=== PATIENT | female | born 1995 | race Two or more races ===

== ENCOUNTER 2024-12-15 14:56 | Emergency (ER) | payer MEDICAID, SELFPAY ==
[2024-12-15 15:20] VITALS: BP 129/87; PULSE 80; RESP 16; TEMP 36.9; O2SAT 99; BMI 30.8
--- NOTE | 2024-12-15 15:34 | EKG_ITS ---
[facility] Test Date: 2024-12-15 Pat Name: YUDY JARA Department: Room: - Gender: Female [employer]: : 1995 Requested By: Raymond Simmons Order Number: [id number] Reading MD: Raymond Simmons Measurements Intervals [place] Rate: 68 P: 47 MS: 133 QRS: 87 QRSD: 91 T: 51 QT: 383 QTc: 408 Interpretive Statements SINUS RHYTHM Compared to ECG 06/03/2024 23:32:46 No significant changes /store/S0/[id number].pdf
--- NOTE | 2024-12-15 15:36 | PD.EDRME ---
Rapid Medical Screening Exam RME Arrival date/time: 12/15/24 14:56 29 year old female present to ED for c/o of dizziness, headache, fever for 1 week I have greeted and performed a focused initial assessment of this patient. A comprehensive ED assessment and evaluation of the patient, analysis of all test results, and completion of the medical decision making process will be conducted by additional ED providers. Chief Complaint: Headache Time Seen by Provider: 12/15/24 15:30 Vital signs: Vital Signs Temperature 98.5 F 12/15/24 15:20 Pulse Rate 80 12/15/24 15:20 Respiratory Rate 16 12/15/24 15:20 Blood Pressure 129/87 H 12/15/24 15:20 Pulse Oximetry (%) 99 12/15/24 15:20 Oxygen Delivery Method Room Air 12/15/24 15:20
[2024-12-15] MEDS: ACETAMINOPHEN 500 MG TABLET 1000 MG PO (15:49)
[2024-12-15] MEDS: ONDANSETRON ODT 4 MG TABRAP PO (15:50)
[2024-12-15 17:11] LABS: Basophils # (Auto) 0.1 Thou/mm3 (0.0-0.2); Basophils % (Auto) 1 % (0-2.5); Eosinophils # (Auto) 1.2 Thou/mm3 (0.0-0.5); Eosinophils % (Auto) 14 % (0-10); Hematocrit 37.1 % (36.0-46.0); Hemoglobin 11.8 g/dL (12.0-16.0); Immature Granulocytes % (Auto) 0 % (0-0); Immature Granulocytes Auto 0.01 Thou/mm3 (0.00-0.00); Lymphocytes # (Auto) 2.1 Thou/mm3 (1.0-4.8); Lymphocytes % (Auto) 24 % (10-50); Mean Corpuscular HGB Conc 31.8 g/dl (31.0-37.0); Mean Corpuscular Hemoglobin 23.8 pg (25.0-35.0); Mean Corpuscular Volume 75 fL (80-100); Monocytes # (Auto) 0.6 Thou/mm3 (0.0-0.8); Monocytes % (Auto) 7 % (0-12); Neutrophils # (Auto) 4.6 Thou/mm3 (1.8-7.7); Neutrophils % (Auto) 54 % (37-80); Nucleated Red Blood Cell % 0 /100 WBC (0); Platelet Count 327 Thou/mm3 (140-440); RDW Standard Deviation 39.4 fL (36.4-46.3); Red Blood Count 4.95 Miln/mm3 (4.00-5.20); White Blood Count 8.5 Thou/mm3 (3.6-11.0)
[2024-12-15 17:28] LABS: HCG,Qualitative Serum Negative
[2024-12-15 17:34] LABS: Alanine Aminotransferase 34 U/L (10-49); Albumin, Serum 4.6 gm/dL (3.5-5.0); Albumin/Globulin Ratio 1.6 (1.2-2.2); Alkaline Phosphatase 124 U/L (46-116); Anion Gap 10 (7-16); Aspartate Amino Transferase 24 U/L (0-34); BUN/Creatinine Ratio 18 Ratio (12-20); Bilirubin,Total 0.6 mg/dL (0.3-1.2); Blood Urea Nitrogen 11 mg/dL (9-23); Calcium 8.9 mg/dL (8.3-10.6); Calcium (Corrected) 8.9 mg/dL (8.5-10.1); Carbon Dioxide 23.9 mMol/L (20.0-31.0); Chloride 107 mMol/L (98-107); Creatinine (Component) 0.6 mg/dL (0.6-1.3); Globulin 2.8 gm/dL (2.3-3.5); Glucose 91 mg/dL (74-106); Osmolality,Calculated 280 (275-295); Potassium 3.8 mMol/L (3.4-5.1); Sodium 141 mMol/L (136-145); Total Protein 7.4 gm/dL (5.7-8.2); Troponin I < 0.002 ng/mL (0.0-0.045); eGFR > 60 See Note
--- NOTE | 2024-12-15 18:22 | PD.EDHA ---
ED Headache RME/HPI General Chief Complaint: Headache Stated Complaint: ELLISON, DIZZY, FEVER, COUGH, CHEST PAIN X 1 DAY Time Seen by Provider: 12/15/24 15:30 Arrival date/time: 12/15/24 14:56 29 year old female present to emergency room with c/o of dizziness, chest pain, headache, chills, for 1 day after getting upset LOCATION: head/chest SEVERITY: Symptoms are described as being severe with limitations on activities of daily living CONTEXT: The patient is unable to identify any inciting events. DURATION/TIMING: The symptoms started approximately 1 days ASSOCIATED SYMPTOMS: The patient is unable to identify any other associated symptoms. MODIFYING FACTORS: The patient is unable to identify any alleviating or aggravating symptoms. PERTINENT ROS: no pleuritic pain, no ripping or tearing sensations, denies any lower extremity edema and no unilateral swelling, no nausea,vomiting, diarrhea, no rash no loc/syncope episode no abd/back pain no dsyuria,urgency,frequency REVIEW OF SYSTEMS: See History of Present Illness - with the exception of those mentioned in the history of present illness, all other systems reviewed and reported as negative GENERAL: In general the patient is awake, interactive, in an emergency department gurney. HEAD/EYES/EARS/NOSE/THROAT: normo-cephalic, atraumatic, mucus membranes are moist, anicteric, palpebral conjunctiva is pink, trachea is midline. CARDIOVASCULAR: regular rate and regular rhythm, no murmurs, heart sounds are not distant, strong pulses in all four extremities that are equal and symmetric bilateral upper and lower extremities, normal capillary refill. CHEST/PULMONARY: normal chest rise and fall, good air movement, clear to auscultation bilaterally, normal inspiratory to expiratory ratios without evidence of respiratory distress. NECK: No midline/Paraspinal tenderness, no step off ROM/Strenght intact No Kernig and bruzinski sign. No trauma ABDOMEN: soft, not tender, no masses appreciated BACK: normal range of motion without pain. NEUROLOGICAL: cranio-facial features are symmetric, moves all four extremities equally without obvious limitations or weakness. EXTREMITY: no tenderness to palpation over the long bones or large joints of the bilateral upper and lower extremities, no joint swelling, no joint erythema, no signs of trauma, no unilateral leg swelling and no peripheral edema. SKIN: warm, dry, well-perfused, no jaundice, no rash, no telangiectasias or petechia. PSYCH: calm, cooperative, no evidence of psychosis or agitation RME / HPI RME / HPI Narrative: 12/15/24 14:56 29 year old female present to ED for c/o of dizziness, headache, fever for 1 day I have greeted and performed a focused initial assessment of this patient. A comprehensive ED assessment and evaluation of the patient, analysis of all test results, and completion of the medical decision making process will be conducted by additional ED providers. Related Data Home Medications ?Medication ?Instructions ?Recorded ?Confirmed vit no.95-ferrous 1 tab PO QDAY 06/04/24 06/05/24 fumarate 28 mg-folic acid 800 mcg tablet () Previous Rx's ?Medication ?Instructions ?Recorded ferrous sulfate 325 mg (65 mg 325 mg PO QDAY #60 tabs 01/16/23 iron) tablet Allergies Allergy/AdvReac Type Severity Reaction Status Date / Time No Known Allergies Allergy Verified 12/15/24 15:01 Course Course Course Narrative: Given History, Exam, and Workup I have low suspicion for ACS, Pneumothorax, Bacterial Pneumonia, Pulmonary Embolus, Tamponade, Aortic Dissection or other emergent problem as a cause for this presentation.? Last Stress Test:? never Last Heart Catheterization:? never HEART Score:?0 PERC negative low risk for PE Quality Measures none Orders Category Date Time Status Bedside COVID-19 Antigen Test NOW Care 12/15/24 15:34 Active Bedside Influenza A&B Antigen Test NOW Care 12/15/24 15:35 Active EKG (ED ONLY) *Do not use* NOW Care 12/15/24 15:34 Completed EKG (ED Only) Stat Exams 12/15/24 15:34 Draft CBC Stat Lab 12/15/24 16:28 Completed CMP [Comprehensive Metabolic Panel] Stat Lab 12/15/24 16:28 Completed HCG,Qualitative Serum Stat Lab 12/15/24 16:28 Completed Troponin I Stat Lab 12/15/24 16:28 Completed Acetaminophen Tab [Tylenol ES Tab] Med 12/15/24 15:34 Discontinued 1,000 mg PO X1 ONE Ondansetron Odt [Zofran Odt] Med 12/15/24 15:34 Discontinued 4 mg PO X1 ONE Reevaluation(s) Reevaluation #1: pt is feeling better after treatment Vital Signs Vital signs: Vital Signs Temperature 98.5 F 12/15/24 15:20 Pulse Rate 80 12/15/24 15:20 Respiratory Rate 16 12/15/24 15:20 Blood Pressure 129/87 H 12/15/24 15:20 Pulse Oximetry (%) 99 12/15/24 15:20 Oxygen Delivery Method Room Air 12/15/24 15:20 Procedures -ED EKG Interpretation #1: Date of EK12/15/24 Rate: 68 Interpretation: Reviewed by me EKG Impression: Normal sinus rhythm, No acute ST-T changes, No ectopy, No ischemic changes and Normal QRS Headache Patient data External records reviewed:: [facility] previous records Clinical information provided by:: patient Social determinants that could affect healthcare access:: none Patient has the following chronic illnesses:: n/a How is presenting disease/condition affected by chronic disease/condition?: no chronic disease Evaluation data The following diagnostics were reviewed and interpreted by me:: lab results, radiology exam(s) and EKG tracing(s) Lab and/or radiology exams considered but not ordered:: n/a Interpretation Summary: cbc/cmp/trop wnl hcg: negative covid/flu negative Medications / Prescriptions Medications or Prescriptions considered but not ordered:: n/a Medication administrations:: Medication Administration History Discontinued Medications Acetaminophen (Acetaminophen 500 Mg Tablet) 1,000 mg PO X1 ONE Stop: 12/15/24 15:35 Last Admin: 12/15/24 15:49 Dose: 1,000 mg Documented By: MATI Ondansetron HCl (Ondansetron Odt 4 Mg Tabrap) 4 mg PO X1 ONE; Protocol Stop: 12/15/24 15:35 Last Admin: 12/15/24 15:50 Dose: 4 mg Documented By: MATI as stated above Consultations Consultation(s) initiated? (list below): No Diagnosis Differential diagnosis headache: migraine, tension headache, headache, sinusitis and other (covid/flu anemia ) Most likely diagnosis given after review of the tests above:: chest pain Admission Indicated Admission indicated?: not indicated Admission Request Was there a request for admission?: No Disposition Plan Disposition Plan: Discharge Discharge Attestation Discharge Attestation: The patient and all family members were given an opportunity to ask questions and understood the discharge instructions. Discharge instructions specifically effects, indications for sooner follow up or return to the emergency department, and the expected course of current diagnosis. Patient condition: Stable Discharge Plan Plan Patient Disposition: HOME (Self Care) Prescriptions/Referrals Prescriptions/Med Rec: No Action ferrous sulfate 325 mg (65 mg iron) tablet 325 mg PO QDAY Qty: 60 0RF PNV cmb#95-ferrous fumarate-FA [] 28 mg iron- 800 mcg tablet 1 tab PO QDAY Referrals: No Primary/Family,Physician [Primary Care Provider] - In 1 week Problem List Clinical Impression: Chest pain Patient/Caregiver Discharge Instructions Education Materials: ED Chest Pain, Uncertain Cause Print Language: Pakistani Stand Alone Forms: Serina Award Info., Patient Portal Info Letter
== END 2024-12-15 20:05 | disposition home or self-care (01) ==
PROVIDERS: Physician Assistant; Emergency Provider Emergency Medicine
DX: R07.9 Chest pain, unspecified (principal); R51.9 Headache, unspecified; R42 Dizziness and giddiness
CPT/HCPCS: 36415; 80053; 84484; 84703; 85025; 93005; 99283; Q0162; A9270